=== PATIENT | male | born 1985 | race Two or more races ===

== ENCOUNTER 2019-11-26 02:55 | Emergency (ER) | payer OTHER ==
[~2019-11-26] VITALS: Ht 172.7 cm; Wt 90.9 kg
[2019-11-26] MEDS ORDERED: FAMOTIDINE 10 MG/ML 2 ML VIAL IVP ONE (03:45)
[2019-11-26] MEDS ORDERED: ONDANSETRON HCL 4 MG/2 ML VIAL IVP ONE (03:45)
[2019-11-26] MEDS ORDERED: MAG HYDROX/AL HYDROX/SIMETH 30 ML SUSP UDCUP PO ONE (03:45)
[2019-11-26] MEDS ORDERED: SODIUM CHLORIDE 0.9% 1,000 ML IV ONE (03:45)
[2019-11-26] MEDS ORDERED: KETOROLAC TROMETHAMINE 30 MG/ML VIAL IVP ONE (03:45)
[2019-11-26 04:30] LABS: APPEARANCE,URINE CLEAR (CLEAR); BASOPHILS % (AUTO) 0.2 % (0.0-2.0); BILIRUBIN,URINE NEGATIVE (NEGATIVE); EOSINOPHILS % (AUTO) 3.1 % (1.0-6.0); GLUCOSE, URINE (UA) NEGATIVE (NEGATIVE); HEMATOCRIT 49.3 % (41-53); HEMOGLOBIN 16.7 g/dL (13.5-17.5); KETONES,URINE NEGATIVE (NEGATIVE); LEUKOCYTE ESTERASE ,URINE NEGATIVE (NEGATIVE); LYMPHOCYTES % (AUTO) 9.3 % (22.0-44.0); MEAN CORPUSCULAR HEMOGLOBIN 30.7 pg (26.0-34.0); MEAN CORPUSCULAR VOLUME 90 fL (80-100); MONOCYTES # (AUTO) 0.7 K/uL (0.1-1.0); MONOCYTES % (AUTO) 6.4 % (2.0-9.0); NITRATE,URINE NEGATIVE (NEGATIVE); OCCULT BLOOD,URINE NEGATIVE (NEGATIVE); PLATELET COUNT (AUTO) 255 K/uL (150-450); PROTEIN,URINE NEGATIVE (NEGATIVE); RED BLOOD CELL COUNT(AUTO) 5.45 MIL/uL (4.50-5.90); RED CELL DISTRIBUTION WIDTH 13.1 % (11.5-14.5); UROBILINOGEN,URINE 0.2 mg/dL (<=1.0)
[2019-11-26 04:34] LABS: ANION GAP 12 mmol/L (8-16); CALCIUM, TOTAL 9.1 mg/dL (8.8-10.5); CARBON DIOXIDE 27 mmol/L (22-29); CHLORIDE 102 mmol/L (98-107); CREATININE 0.96 mg/dL (0.60-1.30); GLOMERULAR FILTR. RATE CALC > 60 mL/min (>60); GLUCOSE,RANDOM 127 mg/dL (70-110); SODIUM SERUM 141 mmol/L (136-145); UREA NITROGEN, BLOOD 17 mg/dL (7-18)
[2019-11-26 04:39] LABS: ALANINE AMINOTRANSFERASE 51 U/L (12-78); ALBUMIN 4.5 g/dL (3.4-5.0); ALKALINE PHOSPHATASE 86 U/L (46-116); ASPARTATE AMINOTRANSFERASE 21 U/L (15-37); LIPASE 138 U/L (73-393); TOTAL PROTEIN, SERUM 8.6 g/dL (6.4-8.2)
[2019-11-26] MEDS ORDERED: SODIUM CHLORIDE 0.9% 100 ML ONE (04:48)
[2019-11-26] MEDS ORDERED: IOVERSOL 350 MG/ML 150 ML VIAL ONE (04:48)
[2019-11-26 06:24] VITALS: BP 116/72
== END 2019-11-26 07:03 | disposition home or self-care (01) ==
LOC: EMS 02:55
DX: K52.9 Noninfective gastroenteritis and colitis, unspecified (principal)
CPT/HCPCS: 36415; 74177; 80053; 81003; 83690; 85025; 96361; 96374; 96375; 99285; J1885; J2405; J3490; J7030; J7050; Q9967

== ENCOUNTER 2020-05-29 11:05 | Emergency (ER) | payer OTHER ==
[~2020-05-29] VITALS: Ht 175.3 cm; Wt 100.0 kg
[2020-05-29 11:15] VITALS: BP 135/77
== END 2020-05-29 12:34 | disposition home or self-care (01) ==
LOC: EMS 11:09
DX: U07.1 COVID-19 (principal); R50.9 Fever, unspecified; R05 Cough
CPT/HCPCS: 99283; U0003

== ENCOUNTER 2022-06-11 17:13 | Emergency (ER) | payer OTHER ==
[~2022-06-11] VITALS: Ht 180.3 cm; Wt 90.9 kg
[2022-06-11] MEDS ORDERED: KETOROLAC TROMETHAMINE 30 MG/ML VIAL IM ONE (18:45)
[2022-06-11 20:19] VITALS: BP 116/71
== END 2022-06-11 20:30 | disposition home or self-care (01) ==
LOC: EMS 17:53
DX: S13.4XXA Sprain of ligaments of cervical spine, initial encounter (principal); M25.511 Pain in right shoulder; M54.2 Cervicalgia; V98.8XXA Other specified transport accidents, initial encounter; Y93.89 Activity, other specified; Y92.89 Other specified places as the place of occurrence of the external cause; Y99.8 Other external cause status
CPT/HCPCS: 99284; 72125; 96372; J1885

== ENCOUNTER 2023-12-13 01:01 | Emergency (ER) | payer OTHER ==
[~2023-12-13] VITALS: Ht 175.3 cm; Wt 95.5 kg
[~2023-12-13 01:01] MED LIST: ACET-2080 PO; IBUP-1554 PO; METH-659 PO
[2023-12-13 01:22] LABS: APPEARANCE,URINE CLEAR (CLEAR); BILIRUBIN,URINE NEGATIVE (NEGATIVE); COLOR,URINE LIGHT YELLOW (YELLOW); GLUCOSE, URINE (UA) NEGATIVE (NEGATIVE); KETONES,URINE NEGATIVE (NEGATIVE); LEUKOCYTE ESTERASE ,URINE NEGATIVE (NEGATIVE); NITRATE,URINE NEGATIVE (NEGATIVE); OCCULT BLOOD,URINE NEGATIVE (NEGATIVE); PROTEIN,URINE NEGATIVE (NEGATIVE); SPECIFIC GRAVITIY, URINE 1.009 (1.003-1.030); UROBILINOGEN,URINE <=1.0 mg/dL (<=1.0)
[2023-12-13 01:23] LABS: BACTERIA,URINE None Seen /HPF (None Seen); RBC,URINE None Seen /HPF (0-2); SQUAMOUS EPITHELIAL CELL,UR None Seen /LPF (None Seen); WBC,URINE None Seen /HPF (0-5)
[2023-12-13 02:47] VITALS: BP 135/72; PULSE 69; RESP 16; TEMP 98.3
== END 2023-12-13 03:12 | disposition home or self-care (01) ==
LOC: EMS 01:01
DX: N52.9 Male erectile dysfunction, unspecified (principal); F52.4 Premature ejaculation
CPT/HCPCS: 81001; 82962; 99283